=== PATIENT | male | born 1990 | race Caucasian/White ===

== ENCOUNTER 2018-07-29 14:44 | Emergency (ER) | payer OTHER ==
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
[2018-07-29 15:16] VITALS: BP 138/85; PULSE 104; TEMP 98.3; BMI 29.6
[2018-07-29] MEDS ORDERED: ACETAMINOPHEN 500 MG TABLET (FP) PO ONE (16:16)
[2018-07-29] MEDS ORDERED: ACETAMINOPHEN 500 MG TABLET (FP) ONE (16:18)
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
== END 2018-07-29 17:17 | disposition home or self-care (01) ==
LOC: JERFT 14:44 → JER 14:44 → JERFT 17:17
DX: S09.8XXA Other specified injuries of head, initial encounter (principal); M54.5 Low back pain; M54.2 Cervicalgia; V43.52XA Car driver injured in collision with other type car in traffic accident, initial encounter; Y92.410 Unspecified street and highway as the place of occurrence of the external cause; Y93.89 Activity, other specified; Y99.8 Other external cause status
CPT/HCPCS: 70450-TC; 72050-TC-FY; 72100-TC-FY; 99281-25

== ENCOUNTER 2018-08-26 22:46 | Emergency (ER) | payer OTHER ==
[2018-08-26 22:56] VITALS: BMI 29.6
[2018-08-26] MEDS ORDERED: ONDANSETRON 4 MG/2 ML VIAL IVPUSH ONE (23:45)
[2018-08-26] MEDS ORDERED: SODIUM CHLORIDE 1,000 ML IV STA (23:46)
--- NOTE | 2018-08-26 23:46 | PDOC ---
History of Present Illness - General Chief Complaint: Vomiting/Diarrhea Stated Complaint: VOMMITTING DIARREA Time Seen by Provider: 08/26/18 23:34 History Source: Patient - History of Present Illness Initial Comments: 08/27/18 01:01 27-year-old male recent travels to [place] complaining of diarrhea 6-8 times per days for the last 6 days. Patient reports some generalized abdominal cramping, nausea. Reports one episode of vomiting early this morning. Patient reports that he has been able to tolerate by mouth without any difficulties.Denies fevers/chills/chest pain, urinary symptoms, testicular pain. Patient reports that he feels weak due to the persistent diarrhea. Denies any new food or sick contact 08/27/18 01:04 Past History - Past Medical History Allergies/Adverse Reactions: Allergies Allergy/AdvReac Type Severity Reaction Status Date / Time No Known Allergies Allergy Verified 07/29/18 15:14 Home Medications: Ambulatory Orders Cyclobenzaprine HCl [Flexeril 10 mg] 10 mg PO HS PRN #10 tablet 07/29/18 Ibuprofen [Motrin -] 600 mg PO TID #30 tablet 07/29/18 COPD: No - Immunization History Immunization Up to Date: No - Suicide/Smoking/Psychosocial Hx Smoking History: Never smoked Have you smoked in the past 12 months: No Number of Cigarettes Smoked Daily: 2 Information on smoking cessation initiated: No Hx Alcohol Use: No Drug/Substance Use Hx: No Substance Use Type: None Review of Systems - Review of Systems Able to Perform ROS?: Yes Is the patient limited Zambian proficient: No Constitutional: No: Symptoms Reported, See HPI, Chills, Diaphoresis, Fever, Loss of Appetite, Malaise, Night Sweats, Weakness, Weight Stable, Unintentional Wgt. Loss, Unexplained wgt Loss, Other ABD/GI: Yes: Diarrhea, Nausea, Vomiting, Abdominal cramping *Physical Exam - Vital Signs Last Vital Signs Temp Pulse Resp BP Pulse Ox 98.9 F 90 18 123/83 100 08/26/18 22:52 08/26/18 22:52 08/26/18 22:52 08/26/18 22:52 08/26/18 22:52 - Physical Exam General Appearance: Yes: Appropriately Dressed Respiratory/Chest: positive: Lungs Clear, Normal Breath Sounds Gastrointestinal/Abdominal: positive: Normal Bowel Sounds, Soft. negative: Tender Moderate Sedation - Procedure Monitoring Vital Signs: Procedure Monitoring Vital Signs Temperature 98.9 F 08/26/18 22:52 Pulse Rate 90 08/26/18 22:52 Respiratory Rate 18 08/26/18 22:52 Blood Pressure 123/83 08/26/18 22:52 O2 Sat by Pulse Oximetry (%) 100 08/26/18 22:52 ED Treatment Course - LABORATORY CBC & Chemistry Diagram: 08/27/18 01:00 08/27/18 01:00 Medical Decision Making - Medical Decision Making 08/27/18 01:05 diarrhea P: labs stool culture o&P 08/27/18 02:41 patient noted to be febrile now. also with LLQ pain, will CTAP r/o colitis/ diverticulitis 08/27/18 04:25 No bowel obstruction or inflammation. Negative for diverticulitis or colitis. No free intraperitoneal air or free fluid. Bilateral nonobstructing renal stones. No hydronephrosis or urinary tract obstruction. Normal liver. Normal spleen. No obvious gallbladder abnormalities. Normal pancreas. 08/27/18 04:57 patient is tolerating Po water. reports feeling better. will 08/27/18 05:12 chgest xray negative *DC/Admit/Observation/Transfer Diagnosis at time of Disposition: Diarrhea Qualifiers: Diarrhea type: unspecified type Qualified Code(s): R19.7 - Diarrhea, unspecified - Discharge Dispostion Disposition: HOME - Referrals Referrals: Brody Holbrook MD [Staff Physician] - 24 hours - Patient Instructions Printed Discharge Instructions: DI for Viral Gastroenteritis -- Adult Additional Instructions: drink plenty of fluids start a BRAT diet ( babananas , rice apples toast) Additional Instructions: * Please call your personal physician to report your Emergency Department visit and to report your progress, if any. * If there is no improvement in symptoms in 2 days call your physician. * Return to the Emergency Department for any worsening symptoms. - Post Discharge Activity Forms/Work/School Notes: Back to Work
[2018-08-26] MEDS ORDERED: ONDANSETRON 4 MG/2 ML VIAL ONE (23:57)
[2018-08-27 01:24] LABS: EOS % 5.2 % (0-4.5); HEMATOCRIT 42.6 % (35.4-49); HEMOGLOBIN 15.1 GM/dL (11.7-16.9); MCH 28.8 pg (25.7-33.7); MCHC 35.5 g/dl (32.0-35.9); MEAN PLT VOLUME 9.8 fl (7.5-11.1); MONO % 7.5 % (3.8-10.2); NEUT % 76.3 % (42.8-82.8); PLATELET COUNT 200 K/MM3 (134-434); RBC 5.25 M/mm3 (4.00-5.60); RDW 13.3 % (11.9-15.9); WHITE BLOOD COUNT 9.3 K/mm3 (4.0-10.0)
[2018-08-27 01:25] LABS: URINE APPEARANCE SLCLOUDY; URINE BILIRUBIN NEGATIVE (<2.0 mg/dL); URINE COLOR LTYELLOW; URINE GLUCOSE (UA) NEGATIVE (NEGATIVE); URINE KETONE NEGATIVE (NEGATIVE); URINE LEUK ESTERASE NEGATIVE (NEGATIVE); URINE NITRITE NEGATIVE (NEGATIVE); URINE PROTEIN NEGATIVE (NEGATIVE); URINE UROBILINOGEN NEGATIVE mg/dL (0.2-1.0)
[2018-08-27 01:29] LABS: EPI CELLS RARE /HPF (FEW); URINE MUCUS RARE
[2018-08-27 01:50] LABS: ALBUMIN 4.3 g/dl (3.4-5.0); ALK PHOS 66 U/L (45-117); ANION GAP 8 MMOL/L (8-16); BILIRUBIN,TOTAL 0.5 mg/dL (0.2-1); BLOOD UREA NITROGEN 10 mg/dL (7-18); CALCIUM 8.7 mg/dL (8.5-10.1); CHLORIDE 104 mmol/L (98-107); CO2 27 mmol/L (21-32); CREATININE 0.7 mg/dL (0.55-1.3); GLUCOSE,RANDOM 76 mg/dL (74-106); LIPASE 192 U/L (73-393); POTASSIUM 3.9 mmol/L (3.5-5.1); SGOT/AST 58 U/L (15-37); SGPT/ALT 113 U/L (13-61); SODIUM 139 mmol/L (136-145); TOT PROT 7.6 g/dl (6.4-8.2)
[2018-08-27] MEDS ORDERED: ACETAMINOPHEN 325 MG TABLET (FP) PO ONE (02:40)
[2018-08-27] MEDS ORDERED: ACETAMINOPHEN 325 MG TABLET (FP) ONE (03:06)
[2018-08-27 05:13] VITALS: BP 102/78; PULSE 102; TEMP 98.3
--- NOTE | 2018-08-27 09:49 | EKG ---
Test Reason : Blood Pressure : / mmHG Vent. Rate : 109 BPM Atrial Rate : 109 BPM P-R Int : 126 ms QRS Dur : 082 ms QT Int : 320 ms P-R-T Axes : 066 083 059 degrees QTc Int : 430 ms SINUS TACHYCARDIA OTHERWISE NORMAL ECG NO PREVIOUS ECGS AVAILABLE Confirmed by CHIKA LEONE, JODIE ([id number]) on 08/27/2018 9:49:20 AM Referred By: Confirmed By:JODIE FARR MD
== END 2018-08-27 05:45 | disposition home or self-care (01) ==
LOC: JER 22:46
PROC: 3E033GC Introduction of Other Therapeutic Substance into Peripheral Vein, Percutaneous Approach (ICD-10-PCS; principal; 2018-08-26)
PROC: 3E0337Z Introduction of Electrolytic and Water Balance Substance into Peripheral Vein, Percutaneous Approach (ICD-10-PCS; 2018-08-26)
DX: R19.7 Diarrhea, unspecified (principal)
CPT/HCPCS: 36415; 71046-TC-FY; 74177-TC; 80053; 81003; 81015; 83690; 85025; 93005; 93010; 99282-25; J7030

== ENCOUNTER 2021-08-02 03:27 | Emergency (ER) | payer OTHER ==
[2021-08-02 03:43] VITALS: BP 107/75; PULSE 85; TEMP 98.4; BMI 28.8
[2021-08-02] MEDS ORDERED: DEXAMETHASONE LIQUID 0.5 MG/5 ML PO ONE (04:38)
[2021-08-02] MEDS ORDERED: DEXAMETHASONE SOD PHOSPHATE 10 MG/1 ML VIAL ONE (04:39)
== END 2021-08-02 04:49 | disposition home or self-care (01) ==
LOC: JER 03:27
PROC: 3E0233Z Introduction of Anti-inflammatory into Muscle, Percutaneous Approach (ICD-10-PCS; principal; 2021-08-02)
DX: R21 Rash and other nonspecific skin eruption (principal)
CPT/HCPCS: 99284-25